=== PATIENT | female | born 1940 | race Caucasian/White ===

== ENCOUNTER 2017-04-13 15:29 | Emergency (ER) | payer OTHER ==
[2017-04-13 15:50] VITALS: BMI 30.9
--- NOTE | 2017-04-13 16:13 | PDOC ---
History of Present Illness - General History Source: Patient, Old Records Exam Limitations: No Limitations <Basia Page - Last Filed: 04/13/17 17:31> - General History Source: Patient, Old Records Exam Limitations: No Limitations - History of Present Illness Initial Comments: 04/13/17 17:56 The patient is a 76 year old female brought via EMS from the clinic, with a significant past medical history of GERD, HTN, HLD, diabetes, dementia, anemia, [place] (1999), CAD, who presents to the emergency department with elevated blood pressure. The patient was at the clinic and the BGM read Over Range, prompting the clinic to send her to the ED for further evaluation. On presentation the patient does not have any complaints. She notes that she has been compliant with all her medications. The patient denies chest pain, shortness of breath, headache and dizziness. Denies fever, chills, nausea, vomit, diarrhea and constipation. Denies dysuria, frequency, urgency and hematuria. Allergies: Morphine Past surgical history: Cholecystectomy Social history: No alcohol, tobacco or drug use reported <Hima Villatoro - Last Filed: 04/13/17 17:57> - General Chief Complaint: Blood Pressure Problem Stated Complaint: HYPERGLYCEMIA Time Seen by Provider: 04/13/17 16:12 Past History - Past Medical History Anemia: Yes Asthma: No Cancer: No Cardiac Disorders: Yes ([place] 1999, CAD,) CVA: No COPD: No CHF: No Dementia: Yes (EARLY DEMENTIA) Diabetes: Yes GI Disorders: Yes (GERD) Disorders: No HTN: Yes Hypercholesterolemia: Yes Liver Disease: No Seizures: No Thyroid Disease: Yes (NODULE, DEPRESSION) Other medical history: OSTEPOROSIS, ATAXIA, INSOMNIA, VIT D DEFICIENCY - Surgical History Abdominal Surgery: No Appendectomy: No Cardiac Surgery: No Cholecystectomy: Yes Lung Surgery: No Neurologic Surgery: No Orthopedic Surgery: No - Psycho/Social/Smoking Cessation Hx Suicidal Ideation: No Smoking History: Former smoker Have you smoked in the past 12 months: No Information on smoking cessation initiated: No Hx Alcohol Use: No Drug/Substance Use Hx: No Hx Substance Use Treatment: No <Basia Page - Last Filed: 04/13/17 17:31> <Hima Villatoro - Last Filed: 04/13/17 17:57> - Past Medical History Allergies/Adverse Reactions: Allergies Allergy/AdvReac Type Severity Reaction Status Date / Time morphine Allergy Difficulty Verified 09/28/12 07:38 Breathing Home Medications: Ambulatory Orders Amlodipine/Valsartan [Exforge 10-320 mg Tablet] 1 each PO DAILY 09/20/12 Cholecalciferol (Vitamin D3) [Vitamin D] 5,000 unit PO WEEKLY 09/20/12 Esomeprazole Mag Trihydrate [Nexium] 20 mg PO DAILY 09/20/12 Metformin HCl [Riomet] 500 mg PO BID 09/20/12 Elkin-3 Acid Ethyl Esters [Lovaza -] 1,000 mg PO TID 09/20/12 Simvastatin [Zocor -] 10 mg PO HS 09/20/12 Acarbose [Precose -] 50 mg PO TID 04/13/17 Alendronate Sodium [Binosto] 70 mg PO WEEKLY 04/13/17 Aspirin [ASA -] 81 mg PO DAILY 04/13/17 Colesevelam HCl [Welchol (Nf)] 625 mg PO HS 04/13/17 Glipizide 5 mg PO BID 04/13/17 Metoprolol Tartrate 25 mg PO BID 04/13/17 Valsartan [Diovan] 80 mg PO BID 04/13/17 Review of Systems - Review of Systems Able to Perform ROS?: Yes Comments:: 04/13/17 17:57 GENERAL/CONSTITUTIONAL: No fever or chills. No weakness. HEAD, EYES, EARS, NOSE AND THROAT: No change in vision. No ear pain or discharge. No sore throat. CARDIOVASCULAR: No chest pain or shortness of breath RESPIRATORY: No cough, wheezing, or hemoptysis. GASTROINTESTINAL: No nausea, vomiting, diarrhea or constipation. GENITOURINARY: No dysuria, frequency, or change in urination. MUSCULOSKELETAL: No joint or muscle swelling or pain. No neck or back pain. SKIN: No rash NEUROLOGIC: No headache, vertigo, loss of consciousness, or change in strength/ sensation. ENDOCRINE: No increased thirst. No abnormal weight change HEMATOLOGIC/LYMPHATIC: No anemia, easy bleeding, or history of blood clots. ALLERGIC/IMMUNOLOGIC: No hives or skin allergy. <Hima Villatoro - Last Filed: 04/13/17 17:57> *Physical Exam - Vital Signs Last Vital Signs Temp Pulse Resp BP Pulse Ox 98.6 F 93 H 18 208/95 98 04/13/17 15:46 04/13/17 15:46 04/13/17 15:46 04/13/17 15:46 04/13/17 15:46 <Basia Page - Last Filed: 04/13/17 17:31> - Vital Signs Last Vital Signs Temp Pulse Resp BP Pulse Ox 98.6 F 93 H 18 208/95 98 04/13/17 15:46 04/13/17 15:46 04/13/17 15:46 04/13/17 15:46 04/13/17 15:46 - Physical Exam Comments: 04/13/17 17:57 GENERAL: Awake, alert, and fully oriented, in no acute distress HEAD: No signs of trauma, normocephalic, atraumatic EYES: PERRLA, EOMI, sclera anicteric, conjunctiva clear ENT: Auricles normal inspection, hearing grossly normal, nares patent, oropharynx clear without exudates. Moist mucosa NECK: Normal ROM, supple, no lymphadenopathy, JVD, or masses LUNGS: No distress, speaks full sentences, clear to auscultation bilaterally HEART: Regular rate and rhythm, normal S1 and S2, no murmurs, rubs or gallops, peripheral pulses normal and equal bilaterally. ABDOMEN: Soft, nontender, normoactive bowel sounds. No guarding, no rebound. No masses EXTREMITIES: Normal inspection, Normal range of motion, no edema. No clubbing or cyanosis. NEUROLOGICAL: Cranial nerves II through XII grossly intact. Normal speech, no focal sensorimotor deficits SKIN: Warm, Dry, normal turgor, no rashes or lesions noted. <Hima Villatoro - Last Filed: 04/13/17 17:57> ED Treatment Course - LABORATORY CBC & Chemistry Diagram: 04/13/17 16:40 04/13/17 16:40 <Basia Page - Last Filed: 04/13/17 17:31> - LABORATORY CBC & Chemistry Diagram: 04/13/17 16:40 04/13/17 16:40 - ADDITIONAL ORDERS Additional order review: Laboratory Results 04/13/17 15:44 POC Glucometer > 400 04/13/17 04/13/17 16:40 15:44 RBC 4.94 MCV 84.4 MCHC 32.4 RDW 14.8 MPV 8.6 Neutrophils % 55.5 Lymphocytes % 37.6 Monocytes % 5.4 Eosinophils % 0.8 Basophils % 0.7 POC Glucometer > 400 <Hima Villatoro - Last Filed: 04/13/17 17:57> Medical Decision Making - Medical Decision Making 04/13/17 17:31 <Basia Page - Last Filed: 04/13/17 17:31> *DC/Admit/Observation/Transfer - Attestations Physician Attestion: 04/13/17 17:32 I, Dr. Basia Page, attest that the scribes documentation that appears above has been prepared under my direction and personally reviewed by me in its entirety. I confirmed that the note above accurately reflects all work, treatment, procedures, and medical decision-making performed by me. <Basia Page - Last Filed: 04/13/17 17:31> - Attestations Scribe Attestion: 04/13/17 17:57 Documentation prepared by Hima Villatoro, acting as medical transcription supervisor for Basia Page MD <Hima Villatoro - Last Filed: 04/13/17 17:57> Diagnosis at time of Disposition: Hyperglycemia, Hypertension
[2017-04-13 17:09] LABS: BASOPHIL 0.7 % (0-2.0); EOSINOPHIL 0.8 % (0-4.5); MCH 27.3 pg (25.7-33.7); MCHC 32.4 g/dl (32.0-36.0); MEAN CELL VOLUME 84.4 fl (80-96); MEAN PLT VOLUME 8.6 fl (7.5-11.1); NEUTROPHILS 55.5 % (42.8-82.8); PLATELET COUNT 240 K/MM3 (134-434); RDW 14.8 % (11.6-15.6); WHITE BLOOD COUNT 6.8 K/mm3 (4.0-10.0)
[2017-04-13] MEDS ORDERED: amLODIPine BESYLATE 10 MG TABLET (FP) PO ONE (17:34)
[2017-04-13] MEDS ORDERED: METOPROLOL SUCCINATE 25 MG TAB.SR.24H (FP) PO ONE (17:34)
[2017-04-13 17:41] LABS: ALBUMIN 3.9 g/dl (3.4-5.0); ANION GAP 13 (8-16); CALCIUM 9.3 mg/dL (8.5-10.1); CO2 24 mmol/L (21-32); CREATININE 0.9 mg/dL (0.55-1.02); PHOSPHOROUS 3.8 mg/dL (2.5-4.9)
[2017-04-13 17:46] LABS: ALK PHOS 167 U/L (45-117); BILIRUBIN,TOTAL 0.4 mg/dL (0.2-1.0); SGPT/ALT 19 U/L (12-78); TOT PROT 8.6 g/dl (6.4-8.2); TROPONIN I < 0.02 ng/ml (0.00-0.05)
[2017-04-13] MEDS ORDERED: amLODIPine BESYLATE 5 MG TABLET (FP) ONE (18:01)
[2017-04-13] MEDS ORDERED: METOPROLOL SUCCINATE 50 MG TAB.SR.24H (FP) ONE (18:01)
[2017-04-13 18:02] LABS: GLUCOSE,RANDOM 506 mg/dL (74-106); SGOT/AST 19 U/L (15-37)
[2017-04-13 18:07] LABS: MAGNESIUM 2.2 mg/dL (1.8-2.4)
[2017-04-13] MEDS ORDERED: SODIUM CHLORIDE 1,000 ML IV STA ×2 (18:08→21:35)
[2017-04-13 19:55] LABS: ACETONE SERUM NEGATIVE (NEGATIVE)
[2017-04-13] MEDS ORDERED: INSULIN REGULAR HUMAN 100 UNITS/ML *VIAL IVPUSH ONE ×2 (21:35→23:02)
--- NOTE | 2017-04-13 23:03 | PDOC ---
*Physical Exam - Vital Signs Last Vital Signs Temp Pulse Resp BP Pulse Ox 98.4 F 71 16 160/70 99 04/13/17 22:00 04/13/17 22:00 04/13/17 22:00 04/13/17 22:00 04/13/17 22:00 ED Treatment Course - LABORATORY CBC & Chemistry Diagram: 04/13/17 16:40 04/13/17 16:40 - ADDITIONAL ORDERS Additional order review: Laboratory Results 04/13/17 04/13/17 04/13/17 20:02 16:40 16:40 Sodium 130 L Potassium 4.2 Chloride 93 L Carbon Dioxide 24 Anion Gap 13 BUN 15 Creatinine 0.9 Creat Clearance w eGFR > 60 POC Glucometer > 400 Random Glucose 506 H* Calcium 9.3 Phosphorus 3.8 Magnesium 2.2 Total Bilirubin 0.4 AST 19 ALT 19 Alkaline Phosphatase 167 H Creatine Kinase 63 Troponin I < 0.02 Total Protein 8.6 H Albumin 3.9 Lipase 228 Acetone, Qual Negative L 04/13/17 15:44 Sodium Potassium Chloride Carbon Dioxide Anion Gap BUN Creatinine Creat Clearance w eGFR POC Glucometer > 400 Random Glucose Calcium Phosphorus Magnesium Total Bilirubin AST ALT Alkaline Phosphatase Creatine Kinase Troponin I Total Protein Albumin Lipase Acetone, Qual 04/13/17 04/13/17 04/13/17 20:02 16:40 15:44 RBC 4.94 MCV 84.4 MCHC 32.4 RDW 14.8 MPV 8.6 Neutrophils % 55.5 Lymphocytes % 37.6 Monocytes % 5.4 Eosinophils % 0.8 Basophils % 0.7 POC Glucometer > 400 > 400 - Medications Given in the ED: ED Medications Discontinued Medications Generic Name Dose Route Start Last Admin Trade Name Eduardq PRN Reason Stop Dose Admin Amlodipine Besylate 10 mg 04/13/17 17:34 04/13/17 18:04 Norvasc - PO 04/13/17 17:35 10 mg ONCE ONE Administration Sodium Chloride 1,000 mls @ 1,000 mls/hr 04/13/17 18:08 04/13/17 18:33 Normal Saline - IV 04/13/17 19:07 1,000 mls/hr ASDIR STA Administration Sodium Chloride 1,000 mls @ 1,000 mls/hr 04/13/17 21:35 04/13/17 21:49 Normal Saline - IV 04/13/17 22:34 1,000 mls/hr ASDIR STA Administration Insulin Human Regular 10 units 04/13/17 21:35 04/13/17 21:45 Novolin R Vial *For Ivpush Or Iv Drip Only* IVPUSH 04/13/17 21:36 10 units ONCE ONE Administration Metoprolol Succinate 25 mg 04/13/17 17:34 04/13/17 18:04 Toprol Xl - PO 04/13/17 17:35 25 mg ONCE ONE Administration Medical Decision Making - Medical Decision Making 04/13/17 23:02 Pt glucose is 387 on BGM. will observe pt longer. *DC/Admit/Observation/Transfer Diagnosis at time of Disposition: Hyperglycemia, Hypertension - Discharge Dispostion Disposition: HOME Condition at time of disposition: Stable Admit: No - Referrals Referrals: Elsie Ramirez MD [Staff Physician] - - Patient Instructions Printed Discharge Instructions: DI for High Blood Pressure, How to Monitor Your Blood Pressure at Home, DI for Hyperglycemia -- Adult Print Language: BOLIVIAN
[2017-04-13] MEDS ORDERED: INSULIN REGULAR HUMAN 100 UNITS/ML *VIAL ONE (23:04)
[2017-04-13 23:57] LABS: URINE APPEARANCE CLEAR; URINE BILIRUBIN NEGATIVE (NEGATIVE); URINE BLOOD NEGATIVE (NEGATIVE); URINE COLOR COLORLESS; URINE GLUCOSE (UA) 3+ (NEGATIVE); URINE KETONE NEGATIVE (NEGATIVE); URINE LEUK ESTERASE NEGATIVE (NEGATIVE); URINE NITRITE NEGATIVE (NEGATIVE); URINE PROTEIN NEGATIVE (NEGATIVE); URINE UROBILINOGEN NEGATIVE E.U./dl (0.2-1.0)
[2017-04-14] MEDS ORDERED: metFORMIN HCL 500 MG TABLET (FP) PO ONE (09:06)
[2017-04-14] MEDS ORDERED: glipiZIDE 5 MG TABLET (FP) PO ONE (09:06)
[2017-04-14] MEDS ORDERED: glipiZIDE 5 MG TABLET (FP) ONE (09:41)
[2017-04-14] MEDS ORDERED: metFORMIN HCL 500 MG TABLET (FP) ONE (09:41)
[2017-04-14 10:19] LABS: ALBUMIN 3.3 g/dl (3.4-5.0); ANION GAP 8 (8-16); BILIRUBIN,TOTAL 0.6 mg/dL (0.2-1.0); CALCIUM 8.7 mg/dL (8.5-10.1); CO2 28 mmol/L (21-32); CREATININE 0.8 mg/dL (0.55-1.02); SGOT/AST 17 U/L (15-37); SGPT/ALT 14 U/L (12-78); TOT PROT 7.4 g/dl (6.4-8.2)
[2017-04-14 10:20] LABS: ALK PHOS 104 U/L (45-117)
--- NOTE | 2017-04-14 10:27 | PDOC ---
*Physical Exam - Vital Signs Last Vital Signs Temp Pulse Resp BP Pulse Ox 97.9 F 74 16 141/90 100 04/14/17 09:44 04/14/17 09:44 04/14/17 09:44 04/14/17 09:44 04/14/17 09:44 - Physical Exam Comments: 04/14/17 10:24 Vital signs normal, ambulating, eating breakfast Well-appearing, speaking full sentences, has no complaints Exam is nonfocal ED Treatment Course - LABORATORY CBC & Chemistry Diagram: 04/13/17 16:40 04/14/17 09:40 - ADDITIONAL ORDERS Additional order review: Laboratory Results 04/14/17 04/14/17 04/13/17 06:19 00:47 23:43 POC Glucometer 309.14670 215.45279 Urine Color Colorless Urine Appearance Clear Urine pH 7.0 Urine Protein Negative Urine Glucose (UA) 3+ H Urine Ketones Negative Urine Blood Negative Urine Nitrite Negative Urine Bilirubin Negative Urine Urobilinogen Negative Ur Leukocyte Esterase Negative 04/13/17 23:01 POC Glucometer 327.99885 Urine Color Urine Appearance Urine pH Urine Protein Urine Glucose (UA) Urine Ketones Urine Blood Urine Nitrite Urine Bilirubin Urine Urobilinogen Ur Leukocyte Esterase 04/14/17 04/14/17 04/13/17 06:19 00:47 23:01 RBC MCV MCHC RDW MPV Neutrophils % Lymphocytes % Monocytes % Eosinophils % Basophils % POC Glucometer 309.80273 215.78844 327.19160 04/13/17 04/13/17 04/13/17 20:02 16:40 15:44 RBC 4.94 MCV 84.4 MCHC 32.4 RDW 14.8 MPV 8.6 Neutrophils % 55.5 Lymphocytes % 37.6 Monocytes % 5.4 Eosinophils % 0.8 Basophils % 0.7 POC Glucometer > 400 > 400 - Medications Given in the ED: ED Medications Discontinued Medications Generic Name Dose Route Start Last Admin Trade Name Freq PRN Reason Stop Dose Admin Amlodipine Besylate 10 mg 04/13/17 17:34 04/13/17 18:04 Norvasc - PO 04/13/17 17:35 10 mg ONCE ONE Administration Glipizide 5 mg 04/14/17 09:06 04/14/17 09:43 Glucotrol - PO 04/14/17 09:07 5 mg ONCE ONE Administration Sodium Chloride 1,000 mls @ 1,000 mls/hr 04/13/17 18:08 04/13/17 18:33 Normal Saline - IV 04/13/17 19:07 1,000 mls/hr ASDIR STA Administration Sodium Chloride 1,000 mls @ 1,000 mls/hr 04/13/17 21:35 04/13/17 21:49 Normal Saline - IV 04/13/17 22:34 1,000 mls/hr ASDIR STA Administration Insulin Human Regular 10 units 04/13/17 21:35 04/13/17 21:45 Novolin R Vial *For Ivpush Or Iv Drip Only* IVPUSH 04/13/17 21:36 10 units ONCE ONE Administration Insulin Human Regular 4 units 04/13/17 23:02 04/13/17 23:09 Novolin R Vial *For Ivpush Or Iv Drip Only* IVPUSH 04/13/17 23:03 4 units ONCE ONE Administration Metformin HCl 500 mg 04/14/17 09:06 04/14/17 09:43 Glucophage - PO 04/14/17 09:07 500 mg ONCE ONE Administration Metoprolol Succinate 25 mg 04/13/17 17:34 04/13/17 18:04 Toprol Xl - PO 04/13/17 17:35 25 mg ONCE ONE Administration Medical Decision Making - Medical Decision Making 04/14/17 10:24 Received signout on this 76-year-old female who was sent here yesterday from clinic with elevated glucose and elevated blood pressure, all asymptomatic. Patient's labs and urinalysis were within normal limits except for elevated glucose, which was treated overnight with fluids and eventually subcutaneous insulin. Her glucose has been variable, but she has remained asymptomatic and well appearing with normal vital signs. Plan at signout this morning was to have case management evaluate the patient for her home health needs and dispo accordingly. When I spoke to the patient, she continued to have no complaints and wanted to go home. She did bump her foot while she was here and is asking for a cane, so I ordered a physical therapy evaluation. No evidence of fracture to her foot. I am repeating the chemistries to rule out increase in anion gap. I have spoken to the [facility] clinic and the patient can go any day this week as a walk-in to see a physician and reassess her diabetes and hypertension medications. Ultimately, patient needs better control as outpatient, there are no indications to emergently do this as an inpatient. I also had case management evaluate and speak with the patient, she has some home health aide during the week, but we will arrange for VNS to see the patient in her house and reevaluate, and we'll also refer the patient to health home. At this time, plan is to follow-up the repeat chemistry, discharged with a nebulizer, and have the patient follow-up at [facility]. 04/14/17 10:53 remains hyperglycemic, given her morning glipizide and metformin. AG decreased, Na and Cl improved. Remains stable for d/c and prompt outpt f/u. She understands return criteria. *DC/Admit/Observation/Transfer Diagnosis at time of Disposition: Hyperglycemia Hypertension Qualifiers: Hypertension type: essential hypertension Qualified Code(s): I10 - Essential ( primary) hypertension - Referrals Referrals: Elsie Ramirez MD [Staff Physician] - - Patient Instructions Printed Discharge Instructions: DI for High Blood Pressure, DI for Hyperglycemia -- Adult, How to Monitor Your Blood Pressure at Home Additional Instructions: Mckeon azucar es tyler y necessita ser jeffery controllada. Sigue con los dottores mike clinica esta semana. Ellos esperan mckeon visita. Llama por la manana y lisa la mary jo por un angy esta semana. Continua mckeon medicina. Regresa si se siente marlinusda, kai, collins, gilmar. Print Language: CHILEAN - Post Discharge Activity
[2017-04-14 10:45] LABS: GLUCOSE,RANDOM 475 mg/dL (74-106)
[2017-04-14 11:22] VITALS: BP 135/90; PULSE 72; TEMP 97.8
--- NOTE | 2017-04-20 12:56 | EKG ---
Test Reason : Blood Pressure : / mmHG Vent. Rate : 082 BPM Atrial Rate : 082 BPM P-R Int : 172 ms QRS Dur : 140 ms QT Int : 414 ms P-R-T Axes : 040 068 022 degrees QTc Int : 483 ms NORMAL SINUS RHYTHM POSSIBLE LEFT ATRIAL ENLARGEMENT RIGHT BUNDLE BRANCH BLOCK POSSIBLE INFERIOR INFARCT , AGE UNDETERMINED ABNORMAL ECG NO PREVIOUS ECGS AVAILABLE Confirmed by SOHEILA DOLAN MD ([id number]) on 04/20/2017 12:55:56 PM Referred By: Confirmed By:SOHEILA DOLAN MD
== END 2017-04-14 11:22 | disposition home or self-care (01) ==
LOC: JER 15:29
PROC: 3E0337Z Introduction of Electrolytic and Water Balance Substance into Peripheral Vein, Percutaneous Approach (ICD-10-PCS; principal; 2017-04-13)
PROC: 3E033VG Introduction of Insulin into Peripheral Vein, Percutaneous Approach (ICD-10-PCS; 2017-04-13)
DX: I10 Essential (primary) hypertension (principal); E11.65 Type 2 diabetes mellitus with hyperglycemia; Z79.84 Long term (current) use of oral hypoglycemic drugs; K21.9 Gastro-esophageal reflux disease without esophagitis; E78.00 Pure hypercholesterolemia, unspecified; F03.90 Unspecified dementia, unspecified severity, without behavioral disturbance, psychotic disturbance, mood disturbance, and anxiety
CPT/HCPCS: 36415; 71010-TC; 80053; 81003; 82009; 82550; 83690; 83735; 84100; 84484; 85025; 93005; 93010; 96361; 96374; 96375; 99284-25

== ENCOUNTER 2017-12-03 13:15 | Observation (INO) | payer OTHER ==
--- NOTE | 2017-12-03 13:51 | PDOC ---
History of Present Illness - General Stated Complaint: evicted from home Time Seen by Provider: 12/03/17 13:32 - History of Present Illness Initial Comments: 12/03/17 13:51 "The patient is a 77 year old female, with a significant past medical history of dementia, GERD, HTN, HLD, diabetes, anemia, CAD, [place] (1999). EMS reports the patient was recently evicted from her apartment today, and she had no other areas where she could stay. She arrives with no complaints of pain or no other concerning symptoms. She denies recent fevers, chills, headache or dizziness. She denies recent nausea, vomit, diarrhea or constipation. She denies recent dysuria, frequency, urgency or hematuria. She denies recent chest pain or shortness of breath. Per EMS report, pt was evicted because she was thought to be a danger to herself and the building. Pt was found to be a hoarder and had left the stove on. Allergies: Morphine Past surgical history:Cholecystectomy Social history: Nonsmoker. Denies EtOH use and recreational drug use. Past History - Past Medical History Allergies/Adverse Reactions: Allergies Allergy/AdvReac Type Severity Reaction Status Date / Time morphine Allergy Difficulty Verified 09/28/12 07:38 Breathing Home Medications: Ambulatory Orders Amlodipine/Valsartan [Exforge 10-320 mg Tablet] 1 each PO DAILY 09/20/12 Cholecalciferol (Vitamin D3) [Vitamin D] 5,000 unit PO WEEKLY 09/20/12 Metformin HCl [Riomet] 500 mg PO BID 09/20/12 Simvastatin [Zocor -] 10 mg PO HS 09/20/12 Acarbose [Precose -] 50 mg PO TID 04/13/17 Alendronate Sodium [Binosto] 70 mg PO WEEKLY 04/13/17 Aspirin [ASA -] 81 mg PO DAILY 04/13/17 Glipizide 5 mg PO BID 04/13/17 Metoprolol Tartrate 25 mg PO BID 04/13/17 Anemia: Yes Asthma: No Cancer: No Cardiac Disorders: Yes ([place] 1999, CAD,) CVA: No COPD: No CHF: No Dementia: Yes (EARLY DEMENTIA) Diabetes: Yes GI Disorders: Yes (GERD) Disorders: No HTN: Yes Hypercholesterolemia: Yes Liver Disease: No Seizures: No Thyroid Disease: Yes (NODULE, DEPRESSION) - Surgical History Abdominal Surgery: No Appendectomy: No Cardiac Surgery: No Cholecystectomy: Yes Lung Surgery: No Neurologic Surgery: No Orthopedic Surgery: No - Suicide/Smoking/Psychosocial Hx Smoking History: Former smoker Have you smoked in the past 12 months: No Information on smoking cessation initiated: No Hx Alcohol Use: No Drug/Substance Use Hx: No Substance Use Type: None Hx Substance Use Treatment: No Review of Systems - Review of Systems Comments:: 12/03/17 14:30 "GENERAL/CONSTITUTIONAL: No fever or chills. No weakness. HEAD, EYES, EARS, NOSE AND THROAT: No change in vision. No ear pain or discharge. No sore throat. CARDIOVASCULAR: No chest pain or shortness of breath. RESPIRATORY: No cough, wheezing, or hemoptysis. GASTROINTESTINAL: No nausea, vomiting, diarrhea or constipation. GENITOURINARY: No dysuria, frequency, or change in urination. MUSCULOSKELETAL: No joint or muscle swelling or pain. No neck or back pain. SKIN: No rash NEUROLOGIC: No headache, vertigo, loss of consciousness, or change in strength/ sensation. ENDOCRINE: No increased thirst. No abnormal weight change. HEMATOLOGIC/LYMPHATIC: No anemia, easy bleeding, or history of blood clots. ALLERGIC/IMMUNOLOGIC: No hives or skin allergy. " *Physical Exam - Vital Signs Last Vital Signs Temp Pulse Resp BP Pulse Ox 97.6 F 92 H 14 140/69 98 12/03/17 13:38 12/03/17 13:38 12/03/17 13:38 12/03/17 13:38 12/03/17 13:38 - Physical Exam Comments: 12/03/17 14:30 "GENERAL: Awake, alert, and fully oriented, in no acute distress HEAD: No signs of trauma EYES: PERRLA, EOMI, sclera anicteric, conjunctiva clear ENT: Auricles normal inspection, hearing grossly normal, nares patent, oropharynx clear without exudates. Moist mucosa NECK: Nontender, no stepoffs, Normal ROM, supple, no lymphadenopathy, JVD, or masses LUNGS: Breath sounds equal, clear to auscultation bilaterally. No wheezes, and no crackles HEART: Regular rate and rhythm, normal S1 and S2, no murmurs, rubs or gallops ABDOMEN: Soft, nontender, normoactive bowel sounds. No guarding, no rebound. No masses EXTREMITIES: Normal range of motion, no edema. No clubbing or cyanosis. No cords, erythema, or tenderness NEUROLOGICAL: Cranial nerves II through XII intact. 5/5 strength and sensation in all extremities, Normal speech, normal gait SKIN: Warm, Dry, normal turgor, no rashes or lesions noted. " ED Treatment Course - LABORATORY CBC & Chemistry Diagram: 12/03/17 13:13 12/03/17 14:10 Medical Decision Making - Medical Decision Making 12/03/17 14:31 77 F with no complaints, here because she was evicted from her home because she was thought to be a danger to herself, found to be hoarding in her apt with stove left on. 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 Pt unable to remember what medications she takes and when she is supposed to take them. Will admit to hospital for management of hyperglycemia and placement. *DC/Admit/Observation/Transfer Diagnosis at time of Disposition: Hyperglycemia - Discharge Dispostion Admit: Yes - Referrals - Patient Instructions - Post Discharge Activity - Attestations Physician Attestion: 12/03/17 18:39 I, Dr. Yoel Rojas MD, attest that this document has been prepared under my direction and personally reviewed by me in its entirety. I further attest, that it accurately reflects all work, treatment, procedures and medical decision -making performed by me.
[2017-12-03 14:11] LABS: BASO % 0.8 % (0-2.0); EOS % 0.9 % (0-4.5); HEMATOCRIT 41.3 % (32.4-45.2); HEMOGLOBIN 13.5 GM/dL (10.7-15.3); LYMPH % 32.7 % (8-40); MCHC 32.6 g/dl (32.0-36.0); MEAN CELL VOLUME 85.9 fl (80-96); MEAN PLT VOLUME 8.5 fl (7.5-11.1); MONO % 5.3 % (3.8-10.2); NEUT % 60.3 % (42.8-82.8); PLATELET COUNT 245 K/MM3 (134-434); RDW 14.5 % (11.6-15.6); WHITE BLOOD COUNT 6.3 K/mm3 (4.0-10.0)
[2017-12-03 17:19] LABS: ALBUMIN 3.6 g/dl (3.4-5.0); ALK PHOS 118 U/L (45-117); ANION GAP 11 (8-16); BILIRUBIN,TOTAL 0.4 mg/dL (0.2-1.0); BLOOD UREA NITROGEN 14 mg/dL (7-18); CALCIUM 8.7 mg/dL (8.5-10.1); CHLORIDE 98 mmol/L (98-107); CO2 25 mmol/L (21-32); CREATININE 0.8 mg/dL (0.55-1.02); SGPT/ALT 25 U/L (12-78); SODIUM 134 mmol/L (136-145)
[2017-12-03 17:42] LABS: POTASSIUM 4.3 mmol/L (3.5-5.1); SGOT/AST 21 U/L (15-37)
[2017-12-03 17:44] LABS: GLUCOSE,RANDOM 454 mg/dL (74-106)
[2017-12-03] MEDS ORDERED: SODIUM CHLORIDE 1,000 ML IV STA (17:54)
[2017-12-03] MEDS ORDERED: SODIUM CHLORIDE 1,000 ML IV SCH (18:15)
--- NOTE | 2017-12-03 18:18 | HP ---
Admitting History and Physical - Admission History of Present Illness: This is a 77 year old female, with pmhx of dementia, GERD, HTN, HLD, DM II, anemia, CAD, [place] (1999). PEr ED record and CM She came to the ED via EMS after being evicted from her apt for being a reported hoarder and leaving the stove on. She is very forgetful unclear why she is here, aside from people taking her from her home. Per her super the patient has been declining in that last 2 years she has friends who help her. She was found to be hyperglycemic on presentation with bgm >400. She says she takes her meds regularly. She denies sob, cp, abdominal pain, nausea, vomiting, rodriguez, dizziness, blurry vision, fever, chills. Currently, she is eating dinner, appear wells, JEN, would like to return to her home tomorrow History Source: Medical Record Limitations to Obtaining History: No Limitations, Dementia - Past Medical History Cardiovascular: Yes: HTN, Hyperlipdemia Gastrointestinal: Yes: GERD Heme/Onc: Yes: Anemia - Past Surgical History Past Surgical History: Yes: Cholecystectomy - Smoking History Smoking history: Former smoker Have you smoked in the past 12 months: No - Alcohol/Substance Use Hx Alcohol Use: No - Social History Usual Living Arrangement: Yes: Alone ADL: Independent Home Medications - Allergies Allergies/Adverse Reactions: Allergies Allergy/AdvReac Type Severity Reaction Status Date / Time morphine Allergy Difficulty Verified 09/28/12 07:38 Breathing - Home Medications Home Medications: Ambulatory Orders Amlodipine/Valsartan [Exforge 10-320 mg Tablet] 1 each PO DAILY 09/20/12 Cholecalciferol (Vitamin D3) [Vitamin D] 5,000 unit PO WEEKLY 09/20/12 Metformin HCl [Riomet] 500 mg PO BID 09/20/12 Simvastatin [Zocor -] 10 mg PO HS 09/20/12 Acarbose [Precose -] 50 mg PO TID 04/13/17 Alendronate Sodium [Binosto] 70 mg PO WEEKLY 04/13/17 Aspirin [ASA -] 81 mg PO DAILY 04/13/17 Glipizide 5 mg PO BID 04/13/17 Metoprolol Tartrate 25 mg PO BID 04/13/17 Review of Systems - Review of Systems Constitutional: reports: No Symptoms Eyes: reports: No Symptoms HENT: reports: No Symptoms Neck: reports: No Symptoms Cardiovascular: reports: No Symptoms Respiratory: reports: No Symptoms Gastrointestinal: reports: No Symptoms Genitourinary: reports: No Symptoms Musculoskeletal: reports: No Symptoms Integumentary: reports: No Symptoms Neurological: reports: No Symptoms Endocrine: reports: No Symptoms Hematology/Lymphatic: reports: No Symptoms Psychiatric: reports: No Symptoms Physical Examination Vital Signs: Vital Signs Temperature 97.6 F 12/03/17 13:38 Pulse Rate 92 H 12/03/17 13:38 Respiratory Rate 14 12/03/17 13:38 Blood Pressure 140/69 12/03/17 13:38 O2 Sat by Pulse Oximetry (%) 98 12/03/17 13:38 Constitutional: Yes: Calm Eyes: Yes: Conjunctiva Clear HENT: Yes: Other (poor dentition) Neck: Yes: WNL Cardiovascular: Yes: Regular Rate and Rhythm, S1, S2 Respiratory: Yes: Regular, CTA Bilaterally Gastrointestinal: Yes: Normal Bowel Sounds, Soft Renal/: Yes: WNL Musculoskeletal: Yes: WNL Extremities: Yes: WNL Edema: No Integumentary: Yes: WNL Neurological: Yes: Alert, Oriented (to person, her home), Confusion, Cran Nerves II-XII Intact, Pre-Existing Deficit Labs: CBC, BMP 12/03/17 13:13 12/03/17 14:10 Problem List - Problems (1) Hyperglycemia Code(s): R73.9 - HYPERGLYCEMIA, UNSPECIFIED Assessment/Plan Assessment: 77 year old female placed under observation for hyperglycemia Plan: 1. Hyperglycemia, DM II - IVF started in ED, however only received 200cc. - UA stat - Start ISS, BGM ACHS - Diabetic diet - Review of her meds at bedside, takes metformin 2. HTN - Metoprolol 25mg BID - Norvasc 10mg qday - Diovan 320mg daily 3. HLD - Zocor 4. DVT - Lovenox sq Dispo: - Awaiting social science professor for placement Visit type - Emergency Visit Emergency Visit: Yes Care time: The patient presented to the Emergency Department on the above date and was hospitalized for further evaluation of their emergent condition. - New Patient This patient is new to me today: Yes Date on this admission: 12/03/17 - Critical Care Critical Care patient: No
[2017-12-03 19:13] LABS: URINE APPEARANCE CLEAR; URINE BILIRUBIN NEGATIVE (NEGATIVE); URINE BLOOD NEGATIVE (NEGATIVE); URINE COLOR COLORLESS; URINE GLUCOSE (UA) 3+ (NEGATIVE); URINE KETONE NEGATIVE (NEGATIVE); URINE NITRITE NEGATIVE (NEGATIVE); URINE PROTEIN NEGATIVE (NEGATIVE); URINE UROBILINOGEN NEGATIVE mg/dL (0.2-1.0)
[2017-12-03 19:16] LABS: URINE LEUK ESTERASE 1+ (NEGATIVE)
[2017-12-03 19:27] LABS: EPI CELLS RARE /HPF (FEW); URINE MUCUS RARE
[2017-12-03] MEDS ORDERED: ATORVASTATIN CA 10 MG TABLET (FP) PO SCH (22:00)
[2017-12-03] MEDS ORDERED: INSULIN (NOVOLOG) ASPART 100 UNITS/ML 10ML VIAL SQ ONE (23:37)
[2017-12-03] MEDS: METOPROLOL TARTRATE 25 MG TABLET (FP) PO SCH (23:42)
[2017-12-03] MEDS: INSULIN SLIDING SCALE (NOVOLOG) 1 VIAL SQ SCH (23:46)
[2017-12-04 02:03] VITALS: BMI 26.2
[2017-12-04] MEDS: INSULIN SLIDING SCALE (NOVOLOG) 1 VIAL SQ SCH ×3 (06:42→16:49)
[2017-12-04 08:29] LABS: ANION GAP 6 (8-16); BLOOD UREA NITROGEN 19 mg/dL (7-18); CALCIUM 7.9 mg/dL (8.5-10.1); CHLORIDE 105 mmol/L (98-107); CO2 28 mmol/L (21-32); CREATININE 0.6 mg/dL (0.55-1.02); GLUCOSE,RANDOM 219 mg/dL (74-106); SODIUM 139 mmol/L (136-145)
[2017-12-04 08:38] LABS: BASO % 0.6 % (0-2.0); EOS % 1.1 % (0-4.5); HEMATOCRIT 36.2 % (32.4-45.2); HEMOGLOBIN 11.7 GM/dL (10.7-15.3); LYMPH % 44.7 % (8-40); MCH 27.7 pg (25.7-33.7); MCHC 32.3 g/dl (32.0-36.0); MEAN CELL VOLUME 85.6 fl (80-96); MEAN PLT VOLUME 8.4 fl (7.5-11.1); MONO % 7.6 % (3.8-10.2); PLATELET COUNT 207 K/MM3 (134-434); RBC 4.24 M/mm3 (3.60-5.2); RDW 14.2 % (11.6-15.6); WHITE BLOOD COUNT 6.3 K/mm3 (4.0-10.0)
[2017-12-04 09:46] LABS: URINE APPEARANCE CLEAR; URINE BILIRUBIN NEGATIVE (NEGATIVE); URINE BLOOD NEGATIVE (NEGATIVE); URINE COLOR STRAW; URINE GLUCOSE (UA) 3+ (NEGATIVE); URINE KETONE NEGATIVE (NEGATIVE); URINE NITRITE NEGATIVE (NEGATIVE); URINE PROTEIN NEGATIVE (NEGATIVE); URINE UROBILINOGEN NEGATIVE mg/dL (0.2-1.0)
[2017-12-04] MEDS ORDERED: VALSARTAN 160 MG TABLET (UD) PO SCH (10:00)
[2017-12-04] MEDS ORDERED: ENOXAPARIN NA (PORCINE) 40 MG/0.4 ML DISP.SYRIN SQ SCH (10:00)
[2017-12-04] MEDS ORDERED: amLODIPine BESYLATE 10 MG TABLET (FP) PO SCH (10:00)
[2017-12-04] MEDS ORDERED: ASPIRIN 81 MG CHEWABLE TABLETS PO SCH (10:00)
[2017-12-04 10:02] LABS: URINE LEUK ESTERASE 2+ (NEGATIVE)
[2017-12-04] MEDS ORDERED: PT OWN MED DRAWER 7, Y5N ONE (10:22)
[2017-12-04] MEDS: METOPROLOL TARTRATE 25 MG TABLET (FP) PO SCH (10:33)
[2017-12-04 10:54] LABS: EPI CELLS RARE /HPF (FEW); YEAST RARE
--- NOTE | 2017-12-04 13:14 | DS ---
Physical Exam: SUBJECTIVE: Patient seen and examined. She feels well , no complaints, eating lunch. Denies fever, chills OBJECTIVE: Vital Signs Period Temp Pulse Resp BP Sys/[place] Pulse Ox Last 24 Hr 97.6 F-98 F 20-92 14-18 139-165/55-71 98-98 PE Neuro: alert, awake, cn 2-12intact Pulm: CTAB CV: s1 s2 rrr no mrg Abd: s nt nd + bs Ext: warm no le edema Laboratory Results - last 24 hr 12/03/17 12/04/17 12/04/17 23:30 05:52 06:30 WBC 6.3 RBC 4.24 Hgb 11.7 D Hct 36.2 MCV 85.6 MCH 27.7 MCHC 32.3 RDW 14.2 Plt Count 207 MPV 8.4 Neutrophils % 46.0 D Lymphocytes % 44.7 H D Monocytes % 7.6 Eosinophils % 1.1 Basophils % 0.6 Sodium Potassium Chloride Carbon Dioxide Anion Gap BUN Creatinine Creat Clearance w eGFR POC Glucometer 449 227 Random Glucose Hemoglobin A1c % Calcium Total Bilirubin AST ALT Alkaline Phosphatase Total Protein Albumin Urine Color Urine Appearance Urine pH Ur Specific [place] Urine Protein Urine Glucose (UA) Urine Ketones Urine Blood Urine Nitrite Urine Bilirubin Urine Urobilinogen Ur Leukocyte Esterase Urine WBC (Auto) Urine RBC (Auto) Ur Epithelial Cells Urine Mucus Urine Yeast 12/04/17 12/04/17 12/04/17 06:30 06:30 09:00 WBC RBC Hgb Hct MCV MCH MCHC RDW Plt Count MPV Neutrophils % Lymphocytes % Monocytes % Eosinophils % Basophils % Sodium 139 Potassium 4.0 Chloride 105 Carbon Dioxide 28 Anion Gap 6 L BUN 19 H Creatinine 0.6 Creat Clearance w eGFR POC Glucometer Random Glucose 219 H Hemoglobin A1c % 14.0 H Calcium 7.9 L Total Bilirubin AST ALT Alkaline Phosphatase Total Protein Albumin Urine Color Straw Urine Appearance Clear Urine pH 6.0 Ur Specific [place] 1.008 Urine Protein Negative Urine Glucose (UA) 3+ H Urine Ketones Negative Urine Blood Negative Urine Nitrite Negative Urine Bilirubin Negative Urine Urobilinogen Negative Ur Leukocyte Esterase 2+ H Urine WBC (Auto) 8 Urine RBC (Auto) <1 Ur Epithelial Cells Rare Urine Mucus Urine Yeast Rare HOSPITAL COURSE: Date of Admission:12/03/17 Date of Discharge: 12/04/17 Minutes to complete discharge: 37 Discharge Summary Reason For Visit: HYPERGLYCEMIA Hospital Course: Initial Hospital Course: Briefly, this 77 year old female, with pmhx of dementia, GERD, HTN, HLD, DM II, anemia, CAD, [place] (1999). Per ED record and CM She came to the ED via EMS after being evicted from her apt for being a reported hoarder and leaving the stove on. She is very forgetful unclear why she is here, aside from people taking her from her home. Subsequent Hospital Course/Progress Note/DC summary: Assessment: 77 year old female placed under observation for hyperglycemia Plan: 1. Hyperglycemia, DM II - uncontrolled - Blood sugar improved - Unclear if patient takes her metformin regularly - Will need to be monitored for daily medication adherence - Metformin 500mg BID - Arcabose 50mg TID - Diabetic diet and teaching, pt very forgetful 2. Asymptomatic bacturiia - UA noted, will hold on abx at this time, no symptoms, fever, wbc 2. HTN - Metoprolol 25mg BID - Norvasc 10mg qday - Diovan 320mg daily 3. HLD - Zocor 4. Dementia - Pt is forgetful, however stable and not combative - On no meds Dispo: - Transfer to SNF with above plan Condition: Stable - Instructions Diet, Activity, Other Instructions: Please return to the ED for any new, persistent, or worsening symptoms. Follow up with your PCP in 1 week Take medications as directed on home medication list Disposition: LONGTERM FACILITY - Home Medications Comprehensive Discharge Medication List: Ambulatory Orders Amlodipine/Valsartan [Exforge 10-320 mg Tablet] 1 each PO DAILY 09/20/12 Cholecalciferol (Vitamin D3) [Vitamin D] 5,000 unit PO WEEKLY 09/20/12 Metformin HCl [Riomet] 500 mg PO BID 09/20/12 Simvastatin [Zocor -] 10 mg PO HS 09/20/12 Acarbose [Precose -] 50 mg PO TID 04/13/17 Alendronate Sodium [Binosto] 70 mg PO WEEKLY 04/13/17 Aspirin [ASA -] 81 mg PO DAILY 04/13/17 Glipizide 5 mg PO BID 04/13/17 Metoprolol Tartrate 25 mg PO BID 04/13/17 Problem List - Problems (1) Hyperglycemia Code(s): R73.9 - HYPERGLYCEMIA, UNSPECIFIED This patient is new to me today: No Emergency Visit: Yes ED Registration Date: 12/03/17 Care time: The patient presented to the Emergency Department on the above date and was hospitalized for further evaluation of their emergent condition. Critical Care patient: No - Discharge Referral Referred to [facility] Med P.C.: No
--- NOTE | 2017-12-04 14:18 | CON.PSY ---
Psychiatry Consult Chief Complaint: Patient seen for Psych evaluation, c ase discussed with school social worker. patient has severe Psycho social problems, she was evicted from he[address]r apartment. has some mild cognitive imapirment but appears very sad , terful but able to comprehend, andc respond to queastions at this time. Symptoms: reports: Depressed Mood, Memory Impairment - Previous Psychiatric Treatment Outpatient: None Inpatient: None - Previous Substance Abuse Treatment Outpatient: None Inpatient: None - Current Medications Current Medications: Active Medications Amlodipine Besylate (Norvasc -) 10 mg PO DAILY [facility] Last Admin: 12/04/17 10:33 Dose: 10 mg Aspirin (Asa -) 81 mg PO DAILY [facility] Last Admin: 12/04/17 10:33 Dose: 81 mg Atorvastatin Calcium (Lipitor -) 10 mg PO HS [facility] Last Admin: 12/03/17 23:42 Dose: 10 mg Enoxaparin Sodium (Lovenox -) 40 mg SQ DAILY [facility] Last Admin: 12/04/17 10:32 Dose: 40 mg Sodium Chloride (Normal Saline -) 1,000 mls @ 75 mls/hr IV ASDIR [facility] Last Admin: 12/03/17 19:23 Dose: 75 mls/hr Insulin Aspart (Novolog Vial Sliding Scale -) 1 vial SQ ACHS [facility] PRN Reason: Protocol Last Admin: 12/04/17 12:54 Dose: 10 units Metoprolol Tartrate (Lopressor -) 25 mg PO BID [facility] Last Admin: 12/04/17 10:33 Dose: 25 mg Valsartan (Diovan -) 320 mg PO DAILY [facility] - Allergies Allergies: Allergies Allergy/AdvReac Type Severity Reaction Status Date / Time morphine Allergy Difficulty Verified 09/28/12 07:38 Breathing - Current Living Status Usual Living Arrangement: Alone - Current Mental Status Evaluation Appearance: Well Groomed Attitude: Cooperative - Affect Affect: Constrictive Appropriateness: Appropriate to Content - Mood Mood: Depressed - Speech/Language Expressive: Coherent - Psychomotor Activity Psychomotor Activity: Slowed - Thought Process Thought Process: Intact - Thought Content Hallucinations: Absent Delusions: Absent - Self Perception Self Perception: No Impairment - Cognition Attention: Alert Memory, Immediate Recall: Intact Memory, Short Term: 2/3 Memory, Remote with Promptin/3 - Concentration Serial Sevens Intact: No Simple Calculations Intact: No - Abstraction Proverb Interpretation: Impaired Judgement: Minimally Impaired - Insight Insight: Intact - Impulse Control Impulse Control: Good Control - Suicidal Ideation Suicidal Ideation: No - Homicidal Ideation Homicidal Ideation: No Assessment/Plan Start Lexapro 5mg po od for depressed mood.
[2017-12-04 15:18] VITALS: BP 140/80; PULSE 74; TEMP 98.3
[2017-12-05] MEDS ORDERED: ESCITALOPRAM OXALATE 10 MG TABLET (FP) PO SCH (10:00)
== END 2017-12-04 17:23 | disposition other institution (70) ==
LOC: JER 13:15 → JERBED 18:39 → J8W 23:07
PROVIDERS: ADMIT Internal Medicine; ATTEND Nurse Practitioner Acute Care
PROC: 3E013VG Introduction of Insulin into Subcutaneous Tissue, Percutaneous Approach (ICD-10-PCS; principal; 2017-12-03)
PROC: 3E013GC Introduction of Other Therapeutic Substance into Subcutaneous Tissue, Percutaneous Approach (ICD-10-PCS; 2017-12-03)
PROC: 3E0337Z Introduction of Electrolytic and Water Balance Substance into Peripheral Vein, Percutaneous Approach (ICD-10-PCS; 2017-12-03)
DX: E11.65 Type 2 diabetes mellitus with hyperglycemia (principal); Z79.84 Long term (current) use of oral hypoglycemic drugs; I10 Essential (primary) hypertension; E78.5 Hyperlipidemia, unspecified; K21.9 Gastro-esophageal reflux disease without esophagitis; I25.10 Atherosclerotic heart disease of native coronary artery without angina pectoris; I25.2 Old myocardial infarction; Z87.891 Personal history of nicotine dependence; R82.71 Bacteriuria; G31.84 Mild cognitive impairment of uncertain or unknown etiology; F32.9 Major depressive disorder, single episode, unspecified
CPT/HCPCS: 36415; 80048; 80053; 81003; 81015; 82962; 83036; 85025; 96360; 96372; 97116-GP; 97161-GP; 99283-25; G0378